=== PATIENT | female | born 1990 | race Two or more races ===

== ENCOUNTER 2016-12-17 10:50 | Emergency (ER) | payer OTHER ==
[~2016-12-17] VITALS: Ht 165.1 cm; Wt 77.2 kg
[2016-12-17 12:14] VITALS: BP 123/88
== END 2016-12-17 12:14 | disposition home or self-care (01) ==
LOC: ED 10:50
DX: N39.0 Urinary tract infection, site not specified (principal)

== ENCOUNTER 2017-05-07 08:39 | Emergency (ER) | payer MEDICAID ==
[~2017-05-07] VITALS: Ht 167.6 cm; Wt 77.1 kg
[2017-05-07 08:41] VITALS: Ht 167.6 cm; Wt 77.1 kg
[2017-05-07 11:04] VITALS: BP 139/71
[2017-05-07 12:42] LABS: UA SPECIFIC GRAVITY >=1.030 (1.005-1.035); microscopic required? YES; urine erythrocyte 3+ (NEGATIVE)
== END 2017-05-07 11:14 | disposition home or self-care (01) ==
LOC: ED 08:39
PROVIDERS: Emergency Medicine
DX: R07.89 Other chest pain (principal); N39.0 Urinary tract infection, site not specified; Z88.0 Allergy status to penicillin
CPT/HCPCS: 87491; 87591; J1885

== ENCOUNTER 2017-07-20 08:35 | Emergency (ER) | payer OTHER ==
[~2017-07-20] VITALS: Ht 165.1 cm; Wt 72.6 kg
[2017-07-20 08:43] VITALS: Ht 165.1 cm; Wt 72.6 kg
[2017-07-20 09:37] LABS: BASOPHIL % 0.1 % (0-2); PLATELET COUNT 311 x10^3mcL (130-400); RED CELL DISTRIBUTION WIDTH 13.9 % (11.5-14.5)
[2017-07-20 09:56] LABS: CALCIUM 8.5 mg/dL (8.5-10.1); CARBON DIOXIDE 25.6 mmol/L (21-32); CHLORIDE SERUM 105 mmol/L (98-107); CREATININE SERUM 0.8 mg/dL (0.6-1.0); GFR1 > 60 mL/min; GLUCOSE SERUM 97 mg/dL (74-106); POTASSIUM SERUM 3.8 mmol/L (3.5-5.1); SODIUM SERUM 142 mmol/L (136-145)
[2017-07-20 10:01] LABS: ALBUMIN 4.4 g/dL (3.4-5.0); ALKALINE PHOSPHATASE 71 U/L (46-116); ALT/SGPT 19 U/L (14-59); AST/SGOT 19 U/L (15-37); BILIRUBIN TOTAL 0.5 mg/dL (0.20-1.00); LIPASE 131 IU/L (73-393)
[2017-07-20 10:04] LABS: AMYLASE 116 U/L (25-115); TOTAL PROTEIN, SERUM 8.3 g/dL (6.4-8.2)
[2017-07-20 12:40] VITALS: BP 118/56
== END 2017-07-20 12:40 | disposition home or self-care (01) ==
LOC: ED 08:35
PROVIDERS: Emergency Medicine
DX: E86.0 Dehydration (principal); Z88.0 Allergy status to penicillin
CPT/HCPCS: 83880; 87046; 87046-59; J2405; J7030

== ENCOUNTER 2017-10-31 15:38 | Emergency (ER) | payer OTHER ==
[~2017-10-31] VITALS: Ht 170.2 cm; Wt 77.7 kg
[2017-10-31 15:44] VITALS: BP 118/74; Ht 170.2 cm; Wt 77.7 kg
== END 2017-10-31 19:30 | disposition home or self-care (01) ==
LOC: ED 15:38
DX: N39.0 Urinary tract infection, site not specified (principal); Z88.0 Allergy status to penicillin